=== PATIENT | male | born 1945 | race African-American/Black ===

== ENCOUNTER 2017-02-11 06:57 | Day surgery (SDC) | payer OTHER ==
[~2017-02-11 06:57] MED LIST: Acetaminophen TAB* 325 MG PO PRN; Buffered Lidocaine 0.9% SYRIN* 5 ML/SYR SYRINGE INTRADERM ONE
[2017-02-11] MEDS ORDERED: Proparacaine 0.5% OPHTH.SOL* 15 ML BTL ONE (07:07)
[2017-02-11] MEDS ORDERED: Lidocaine 2% PF* 10 ML AMP ONE (07:20)
[2017-02-11] MEDS ORDERED: Acetylcholine 1:100 OPTH* OPHTH.SOLN ONE (07:21)
[2017-02-11] MEDS ORDERED: Neomycin/Polymy/Dex OPTH.SUSP* MAXITROL 0.1% 5 ML ONE (07:22)
[2017-02-11] MEDS ORDERED: BSS OPTH.SOL* BTL ONE (07:22)
[2017-02-11] MEDS ORDERED: Povidone Iodine 5% OPTH* 30 ML BTL ONE (07:22)
[2017-02-11] MEDS ORDERED: Hyaluronidase OVINE* 200 UNIT/ML ML SUBCUT ONE (07:22)
[2017-02-11] MEDS ORDERED: Triamcinolone Acetonide* 40 MG/ML 1 ML VIAL ONE (07:24)
[2017-02-11] MEDS ORDERED: Atropine 1% OPHTH.SOL* 2 ML BOT - 2 ML ONE (07:24)
[2017-02-11] MEDS ORDERED: Lidocaine 1.5% EPI 1:200,000* 30 ML SDV ONE (07:25)
[2017-02-11] MEDS ORDERED: fentaNYL* 50 MCG/ML 2 ML VIAL (100 MCG VIAL) ONE (08:29)
[2017-02-11] MEDS ORDERED: Midazolam* 1 MG/ML 2 ML VIAL (2 MG) ONE (08:29)
[2017-02-11] MEDS ORDERED: Propofol* 10 MG/ML 20 ML BTL IV PUSH ONE (08:36)
[2017-02-11] MEDS ORDERED: Acetaminophen TAB* 325 MG ONE (09:55)
[2017-02-11 10:12] VITALS: BP 134/74
--- NOTE | 2017-02-11 15:26 | OP ---
DATE OF OPERATION: 02/11/17 - [facility] DATE OF : 45 SURGEON: James Orozco MD ANESTHESIA: Local MAC. PRE-OP DIAGNOSIS: Uncontrolled glaucoma, left eye. POST-OP DIAGNOSIS: Uncontrolled glaucoma, left eye. OPERATIVE PROCEDURE: Ahmed valve with donor sclerae left eye. COMPLICATIONS: None. DESCRIPTION OF PROCEDURE: The patient was given retrobulbar anesthesia in the operating room, 50:50 mixture of 1.5% lidocaine with epinephrine mixed with 0.75 Marcaine 4 cc were given in the without difficulty. The eye was prepped and draped in the usual sterile fashion. Lid speculum was placed. 6-0 silk taction suture placed through the superior limbus of the cornea. I rotated inferiorly. The Ahmed valve was primed using saline. A fornix-based conjunctival peritomy was performed with Scott scissors. Dissection carried down to the equator. Hemostasis achieved with cautery. The Ahmed valve was placed on to the bare sclera and sutured with two 10-0 Prolene sutures through its footplates, and the footplates were approximately 10 mm posterior to the limbus. Then the anterior chamber entered with a 21-gauge needle. DisCoVisc was instilled into the anterior chamber, paracentesis was made at the 4 o'clock position with a 75 blade and then the tube trimmed in and placed into the anterior chamber. The tube was then sutured to the bare sclera using two 10-0 nylon Prolene. Then a donor sclerae was cut to cover the tube on the surface of the sclerae and sutured with four 10-0 nylon sutures. The conjunctivae was then closed using a combination of running locking 10-0 nylon and 10-0 Vicryl suture closure. All traction sutures removed. Anterior chamber reinflated with balanced salt solution, topical Maxitrol, and atropine given, Kenalog 40 mg /mL 1 mL was given subtenon and then the eye was patched. [id number]/[facility] #: [id number] [facility]
== END 2017-02-11 10:17 | disposition home or self-care (01) ==
LOC: OREAST 06:57
PROVIDERS: ATTEND Specialist
DX: H40.1133 Primary open-angle glaucoma, bilateral, severe stage (principal); Z96.1 Presence of intraocular lens; I10 Essential (primary) hypertension
CPT/HCPCS: A9270-GY; C1783; J2001; J2250; J2704; J3010; J3301; J3471

== ENCOUNTER 2017-02-23 06:35 | Day surgery (SDC) | payer OTHER ==
[~2017-02-23 06:35] MED LIST changes: -Acetaminophen TAB* 325 MG PO PRN; +Dexamethasone IV* 4 MG/ML 1 ML (4 MG) IV SLOW PU ONE; +Dexamethasone IV* 4 MG/ML 1 ML (4 MG) ONE; +Famotidine IV* 10 MG/ML 2 ML (20 mg) IV ONE; +Famotidine IV* 10 MG/ML 2 ML (20 mg) ONE
[2017-02-23] MEDS ORDERED: Triamcinolone Acetonide* 40 MG/ML 1 ML VIAL ONE (07:12)
[2017-02-23] MEDS ORDERED: Acetylcholine 1:100 OPTH* OPHTH.SOLN ONE (07:12)
[2017-02-23] MEDS ORDERED: Lidocaine 2% PF* 10 ML AMP ONE (07:12)
[2017-02-23] MEDS ORDERED: BSS OPTH.SOL* BTL ONE (07:12)
[2017-02-23] MEDS ORDERED: Neomycin/Polymy/Dex OPTH.SUSP* MAXITROL 0.1% 5 ML ONE (07:13)
[2017-02-23] MEDS ORDERED: Povidone Iodine 5% OPTH* 30 ML BTL ONE (07:13)
[2017-02-23] MEDS ORDERED: Hyaluronidase OVINE* 200 UNIT/ML ML SUBCUT ONE (07:14)
[2017-02-23] MEDS ORDERED: Sodium Bicarbonate 8.4%* 50 ML SYRINGE ONE (07:15)
[2017-02-23] MEDS ORDERED: Midazolam* 1 MG/ML 2 ML VIAL (2 MG) ONE (07:36)
[2017-02-23] MEDS ORDERED: fentaNYL* 50 MCG/ML 2 ML VIAL (100 MCG VIAL) ONE (07:36)
[2017-02-23] MEDS ORDERED: Ondansetron INJ* 2 MG/ML VIAL ONE (07:37)
[2017-02-23] MEDS ORDERED: Propofol* 10 MG/ML 20 ML BTL IV PUSH ONE (07:37)
[2017-02-23] MEDS ORDERED: Atropine 1% OPHTH.SOL* 2 ML BOT - 2 ML ONE (08:11)
[2017-02-23 09:30] VITALS: BP 135/75
--- NOTE | 2017-02-23 22:33 | OP ---
DATE OF OPERATION: 02/23/17 - [facility] DATE OF : 45 SURGEON: James Orozco MD ANESTHESIA: Local with MAC. PRE-OP DIAGNOSIS: Uncontrolled glaucoma, right eye. POST-OP DIAGNOSIS: Uncontrolled glaucoma, right eye. OPERATIVE PROCEDURE: Ahmed valve with donor sclera, right eye. COMPLICATIONS: None. DESCRIPTION OF PROCEDURE: The patient was given retrobulbar anesthesia in the operating room, 4 cc of 0.75 Marcaine with 2% lidocaine with epinephrine given in the muscle cone without difficulty. Eyes are prepped and draped in the usual sterile fashion. Ahmed valve was primed with saline. A traction 6-0 silk suture was placed through the superior limbus and rotated inferiorly. Dissection carried for fornix-based flap to the equator with Scott scissors running from the 9 o'clock to 11o'clock position. Of note, the previous trabeculectomy site was flowing freely once released of adhesions. Two 10-0 nylon sutures were placed through the triangular scleral flap on the previous surgery. The Ahmed valve was sutured on to the bare sclera 10 mm posterior to the limbus with two 10-0 Prolene interrupted sutures, the two placed through the trabeculectomy site, new needle tract was made with a 22-gauge needle and placed through the original trabeculectomy site, trimmed to length, and sutured to the sclera with one 10-0 Prolene suture. Down the sclerae covered the surface, sutured with two 10-0 nylon suture and then the conjunctivae closed using a running locking and interrupted combination of 10-0 nylon sutures. Paracentesis made at the 8 o'clock position, anterior chamber refilled with balanced salt solution. Sub-Tenon's Kenalog 40 mg/mL 1 mL was given in the anterior fornix. Topical Maxitrol and atropine given and the eye was patched. [id number]/[facility] #: [id number] [facility]
== END 2017-02-23 09:48 | disposition home or self-care (01) ==
LOC: OREAST 06:35
PROVIDERS: ATTEND Specialist
DX: H40.1133 Primary open-angle glaucoma, bilateral, severe stage (principal); Z96.1 Presence of intraocular lens; I10 Essential (primary) hypertension
CPT/HCPCS: A9270-GY; C1783; J1100; J2001; J2250; J2405; J2704; J3010; J3301; J3471